=== PATIENT | male | born 1955 | race Two or more races ===

== ENCOUNTER 2021-09-13 11:35 | Emergency (ER) | payer OTHER ==
[~2021-09-13] VITALS: Ht 180.3 cm; Wt 115.7 kg
[2021-09-13 13:01] VITALS: BP 146/81
[2021-09-13] MEDS ORDERED: NAP500T PO (13:15)
[2021-09-13] MEDS ORDERED: ONDANSETRON ODT 4 MG TAB PO ONE (13:15)
[2021-09-13] MEDS ORDERED: CYCL-837 PO (13:15)
[2021-09-13] MEDS ORDERED: HYDROcodone-ACET 5/325MG TAB PO ONE (13:15)
== END 2021-09-13 14:05 | disposition home or self-care (01) ==
LOC: ER 11:35
DX: S46.911A Strain of unspecified muscle, fascia and tendon at shoulder and upper arm level, right arm, initial encounter (principal); S16.1XXA Strain of muscle, fascia and tendon at neck level, initial encounter; M48.02 Spinal stenosis, cervical region; I10 Essential (primary) hypertension; E11.9 Type 2 diabetes mellitus without complications; E78.5 Hyperlipidemia, unspecified; Z95.0 Presence of cardiac pacemaker; Z79.899 Other long term (current) drug therapy; X58.XXXA Exposure to other specified factors, initial encounter; Y93.89 Activity, other specified; Y92.89 Other specified places as the place of occurrence of the external cause; Y99.8 Other external cause status
CPT/HCPCS: 72125; 99284; Q0162